=== PATIENT | male | born 1940 | race Caucasian/White ===

== ENCOUNTER → 2020-12-11 | Outpatient (CLI) | payer MEDICARE | LOC: COL.RAD 10:30 | DX: Z13.6 Encounter for screening for cardiovascular disorders (principal) ==

== ENCOUNTER → 2021-05-02 | Outpatient (CLI) | payer MEDICARE | LOC: COL.RAD 08:10 | DX: K59.01 Slow transit constipation (principal); N28.1 Cyst of kidney, acquired ==

== ENCOUNTER → 2021-08-01 | Outpatient (CLI) | payer MEDICARE | LOC: COL.RAD 07:38 | DX: R11.0 Nausea (principal) | CPT/HCPCS: A9541 ==

== ENCOUNTER 2021-08-30 07:18 | Day surgery (SDC) | payer MEDICARE ==
[~2021-08-30] VITALS: Ht 175.3 cm; Wt 81.3 kg
[2021-08-30] MEDS ORDERED: TOPROL XL 25MG25 MG PO (07:45)
[2021-08-30] MEDS ORDERED: GLUCOPHAGE1000 MG PO (07:45)
[2021-08-30] MEDS ORDERED: EUTHYROX50 MCG PO (07:45)
[2021-08-30] MEDS ORDERED: ZESTRIL 20MG TA20 MG PO (07:46)
[2021-08-30] MEDS ORDERED: GLUCOTROL 5M5 MG/TAB PO (07:46)
[2021-08-30] MEDS ORDERED: TYLENOL 8 HR PO (07:46)
[2021-08-30] MEDS ORDERED: IRON TABLETS325 MG PO (07:47)
[2021-08-30] MEDS ORDERED: ASPIRIN 81M81 MG/TA2 PO (07:47)
[2021-08-30] MEDS ORDERED: CENTRUM SILVER1 CTB PO (07:47)
[2021-08-30] MEDS ORDERED: FISH OIL 1000MG1 CAP PO (07:47)
[2021-08-30] MEDS ORDERED: VITAMIN D31000 IU PO (07:48)
[2021-08-30] MEDS ORDERED: LEXAPRO 10MG10 MG PO (07:49)
[2021-08-30] MEDS ORDERED: B COMPLEX & B121 TAB PO (07:49)
[2021-08-30] MEDS ORDERED: REGLAN 5MG T5 MG/TAB PO (07:49)
[2021-08-30] MEDS ORDERED: NITROSTAT0.4 MG/TAB SL (07:50)
[2021-08-30 08:01] VITALS: BP 173/87; PULSE 68; TEMP 97.5
[2021-08-30 09:15] VITALS: BP 155/81; PULSE 61; TEMP 98
[2021-08-30 09:30] VITALS: BP 170/82; PULSE 60; TEMP 98
[2021-08-30 09:45] VITALS: BP 166/85; PULSE 62; TEMP 98
[2021-08-30 13:13] VITALS: BP 155/81; PULSE 58
== END 2021-08-30 10:10 | disposition home or self-care (01) ==
LOC: SDCO 07:18
DX: K22.70 Barrett's esophagus without dysplasia (principal); K20.90 Esophagitis, unspecified without bleeding; K44.9 Diaphragmatic hernia without obstruction or gangrene; K59.00 Constipation, unspecified; Z87.891 Personal history of nicotine dependence
CPT/HCPCS: J2704; J7030

== ENCOUNTER 2021-11-14 10:01 | Emergency (ER) | payer MEDICARE, OTHER ==
[~2021-11-14] VITALS: Ht 172.7 cm; Wt 81.8 kg
[~2021-11-14 10:01] MED LIST: ASPIRIN 81M81 MG/TA2 PO; B COMPLEX & B121 TAB PO; CENTRUM SILVER1 CTB PO; EUTHYROX50 MCG PO; FISH OIL 1000MG1 CAP PO; GLUCOPHAGE1000 MG PO; GLUCOTROL 5M5 MG/TAB PO; IRON TABLETS325 MG PO; LEXAPRO 10MG10 MG PO; NITROSTAT0.4 MG/TAB SL; REGLAN 5MG T5 MG/TAB PO; TOPROL XL 25MG25 MG PO; TYLENOL 8 HR PO; VITAMIN D31000 IU PO; ZESTRIL 20MG TA20 MG PO
[2021-11-14 10:04] VITALS: TEMP 98.3
[2021-11-14 10:41] LABS: BASO % 0.4 % (0.0-2.0); EOS # 0.3 K/mm3 (0.0-0.7); EOS % 5.3 % (0.0-4.0); GRAN # 3.3 K/mm3 (1.4-6.5); GRAN % 64.4 % (42.2-75.2); HEMOGLOBIN 12.4 g/dl (13.5-18.0); LYMPH % 19.3 % (20.0-51.0); MEAN CELL VOLUME 93 fl (80.0-100.0); MEAN CORPUSCULAR HEMOGLOBIN 32 pg (27-31); MEAN CORPUSCULAR HGB CONC 34 g/dl (33.0-37.0); MEAN PLATELET VOLUME 9.9 fl (7.4-10.4); MONO # 0.5 K/mm3 (0.1-0.6); MONO % 10.4 % (1.7-9.3); PLATELET COUNT 182 K/mm3 (130-400); RED BLOOD COUNT 3.92 M/mm3 (4.20-5.60); REDCELL DISTRIBUTION WIDTH-CV 13.2 % (11.5-14.5)
[2021-11-14 10:43] LABS: HEMATOCRIT 36.3 % (42.0-52.0)
[2021-11-14 10:49] LABS: COLLECTION METHOD CATHETER
[2021-11-14 10:56] LABS: ALBUMIN 3.5 gm/dL (3.4-4.8); BILIRUBIN,TOTAL 0.8 mg/dL (0.2-1.2); CALCIUM 9.6 mg/dL (8.4-10.2); CREATININE, serum 1.05 mg/dL (0.72-1.25); TOTAL PROTEIN 6.4 gm/dL (6.2-8.1)
[2021-11-14 11:03] LABS: MUCOUS Present (NOT PRESENT); PH 5 (5-8); SQUAMOUS EPITHELIAL 0-2 /hpf (0-10); URINE APPEARANCE Hazy (CLEAR/HAZY); URINE BACTERIA None Seen /hpf (NONE SEEN); URINE BILIRUBIN Negative (NEGATIVE); URINE BLOOD Negative (NEGATIVE); URINE COLOR Yellow (YELLOW); URINE GLUCOSE 1+ (NEGATIVE); URINE KETONE Trace (NEGATIVE); URINE LEUKOCYTE ESTERASE Negative (NEGATIVE); URINE NITRATE Negative (NEGATIVE); URINE PROTEIN(semi-quant) Negative (NEGATIVE); URINE RBC 0-2 /hpf (0-2); URINE UROBILINOGEN Negative (NEGATIVE)
[2021-11-14 13:50] VITALS: BP 147/100; PULSE 85
--- NOTE | 2021-11-14 13:51 | NUR ---
ADELFO responded to consult. The patient presented to the ED with right leg pain after a fall yesterday. He has had altered level of consciousness since the fall. It is noted that he likely has a history of dementia. ADELFO met with the patient and his daughter, Lois (ph#[phone]). The patient lives in [place] with Lois. Lois states that she is with the patient at all times, except on Wednesdays, when she works. She states that she brings the patient to [facility] for adult day care on Wednesdays. She states that the patient is normally independent with ADLs and has a cane. Lois states that the patient has been receiving home health services from [facility] and he has a bathe aide through them. The patient's PCP is Dr. Eldon So. Lois states that the way the patient is now, she does not think she can take the patient home. ADELFO discussed looking at going to a facility, but informed Lois how this would be private pay. Lois states that they cannot afford to private pay at a facility. She states that she is working on a Medicaid application now for the patient and is hopeful he will be approved, so he can get in-home care paid by insurance. Lois states that she will take the patient home and resume home health services. She states that she will just need assistance getting the patient in and out of her vehicle. ADELFO informed Lois how our staff can help get the patient into her vehicle and this SW can have [facility] meet them at their home, to help get the patient inside. Lois verbalized understanding and is agreeable to this plan. ADELFO updated the patient's RN and the ED doctor. ADELFO contacted [facility] and they will meet the patient and his daughter at their home. ADELFO contacted and faxed a [id number] and updates to Denzel at [facility]. Dnezel reports that they already have the patient on for services and will continue services.
== END 2021-11-14 13:53 | disposition home or self-care (01) ==
LOC: COL.ER 10:01
PROVIDERS: Personal Emergency Response Attendant
DX: F03.90 Unspecified dementia, unspecified severity, without behavioral disturbance, psychotic disturbance, mood disturbance, and anxiety (principal); W18.30XA Fall on same level, unspecified, initial encounter

== ENCOUNTER 2021-12-11 10:48 | Observation (INO) | payer MEDICARE, OTHER ==
[~2021-12-11] VITALS: Ht 25.4 cm; Wt 67.7 kg
[2021-12-11 11:17] LABS: BASO % 0.2 % (0.0-2.0); EOS % 0.4 % (0.0-4.0); GRAN # 3.5 K/mm3 (1.4-6.5); GRAN % 75.3 % (42.2-75.2); HEMATOCRIT 39.6 % (42.0-52.0); HEMOGLOBIN 13.3 g/dl (13.5-18.0); LYMPH # 0.6 K/mm3 (1.2-3.4); LYMPH % 12.6 % (20.0-51.0); MEAN CELL VOLUME 94 fl (80.0-100.0); MEAN CORPUSCULAR HEMOGLOBIN 32 pg (27-31); MEAN CORPUSCULAR HGB CONC 34 g/dl (33.0-37.0); MEAN PLATELET VOLUME 10.6 fl (7.4-10.4); MONO # 0.5 K/mm3 (0.1-0.6); MONO % 11.1 % (1.7-9.3); PLATELET COUNT 227 K/mm3 (130-400); RED BLOOD COUNT 4.22 M/mm3 (4.20-5.60); REDCELL DISTRIBUTION WIDTH-CV 12.7 % (11.5-14.5)
[2021-12-11 11:18] LABS: PROTHROMBIN TIME 15.3 SECONDS (9.7-12.8)
[2021-12-11 11:19] LABS: INR 1.3 (0.8-3.0)
[2021-12-11 11:31] LABS: ALANINE AMINOTRANSFERASE 7 U/L (0-55); ALBUMIN 3.5 gm/dL (3.4-4.8); ALKALINE PHOSPHATASE 98 U/L (40-150); ANION GAP 13 mmol/L (7-16); AST,SGOT 11 U/L (5-34); BILIRUBIN,TOTAL 0.5 mg/dL (0.2-1.2); BLOOD UREA NITROGEN 19 mg/dL (8-26); CALCIUM 9.5 mg/dL (8.4-10.2); CARBON DIOXIDE 22 mmol/L (23-31); CHLORIDE 105 mmol/L (98-107); CREATININE, serum 1.11 mg/dL (0.72-1.25); GLUCOSE 174 mg/dL (70-99); POTASSIUM 4.2 mmol/L (3.5-4.5); SODIUM 140 mmol/L (136-145); TOTAL PROTEIN 7.4 gm/dL (6.2-8.1)
[2021-12-11 11:38] LABS: TROPONIN-I < 0.010 ng/mL (0.00-0.033)
[2021-12-11 12:03] LABS: COLLECTION METHOD CLEAN CATCH
[2021-12-11 12:09] LABS: MUCOUS Present (NOT PRESENT); PH 5 (5-8); SQUAMOUS EPITHELIAL None Seen /hpf (0-10); URINE APPEARANCE Hazy (CLEAR/HAZY); URINE BACTERIA None Seen /hpf (NONE SEEN); URINE BILIRUBIN Negative (NEGATIVE); URINE BLOOD Negative (NEGATIVE); URINE COLOR Yellow (YELLOW); URINE GLUCOSE 2+ (NEGATIVE); URINE KETONE 1+ (NEGATIVE); URINE LEUKOCYTE ESTERASE Negative (NEGATIVE); URINE NITRATE Negative (NEGATIVE); URINE PROTEIN(semi-quant) 1+ (NEGATIVE); URINE RBC 0-2 /hpf (0-2); URINE UROBILINOGEN Negative (NEGATIVE)
[2021-12-11 15:41] VITALS: BP 131/56; PULSE 141; TEMP 98.7
[2021-12-11 15:45] VITALS: BP 113/59
[2021-12-11 16:12] VITALS: BP 109/58
--- NOTE | 2021-12-11 17:46 | NUR ---
Covid + admission from ED. Pt is confused, drowsy, and intermittently following commands/answering questions. Social work, dietary, speech and cardiology consulted. 5 mg metoprolol IV push given per order for sustained HR in the 140's. Patient asymptomatic with stable BP.
[2021-12-11 20:44] VITALS: BP 110/78; PULSE 97; TEMP 98.4
--- NOTE | 2021-12-11 21:27 | NUR ---
PT RESTING QUIETLY IN BED WATCHING TV. PT CONFUSED BUT PLEASANT.
[2021-12-12 03:06] VITALS: BP 101/65; PULSE 55; TEMP 97.8
[2021-12-12 06:45] LABS: GRAN # 2.4 K/mm3 (1.4-6.5); GRAN % 71.7 % (42.2-75.2); HEMOGLOBIN 12.3 g/dl (13.5-18.0); LYMPH # 0.5 K/mm3 (1.2-3.4); LYMPH % 16.1 % (20.0-51.0); MEAN CELL VOLUME 92 fl (80.0-100.0); MEAN CORPUSCULAR HEMOGLOBIN 32 pg (27-31); MEAN CORPUSCULAR HGB CONC 34 g/dl (33.0-37.0); MEAN PLATELET VOLUME 11.2 fl (7.4-10.4); MONO # 0.4 K/mm3 (0.1-0.6); MONO % 11.9 % (1.7-9.3); PLATELET COUNT 229 K/mm3 (130-400); RED BLOOD COUNT 3.91 M/mm3 (4.20-5.60); REDCELL DISTRIBUTION WIDTH-CV 12.7 % (11.5-14.5)
[2021-12-12 07:13] LABS: ALBUMIN 3.1 gm/dL (3.4-4.8); CALCIUM 9.2 mg/dL (8.4-10.2); CREATININE, serum 0.96 mg/dL (0.72-1.25); MAGNESIUM 1.7 mg/dL (1.6-2.6); PHOSPHOROUS 3.5 mg/dL (2.3-4.7); POTASSIUM 4.3 mmol/L (3.5-4.5)
[2021-12-12 07:59] VITALS: BP 140/84; PULSE 91; TEMP 97.7
--- NOTE | 2021-12-12 11:22 | NUR ---
PATIENT RESTING IN BED, NO COMPLAINTS OF PAIN. FEET AND HEELS INTACT. WALLACE PROMININCES INTACT. RECTUM, SCROTUM AND INNER BUTTOCKS, RED AND EXCORIATED. PATIENT COMPLAINS OF BEING COLD, PATIENTS EXTREMITIES AND SKIN ARE VERY COLD TO THE TOUCH. PULSES ARE FAINT IN EXTREMITIES. AYALA IN PLACE, URINE TEA COLORED WITH HEAVY SEDIMENT. PATIENT VERBALLY STATES HE IS HUNGRY BUT JUST NOT READY TO EAT YET. AWAITING CONVERSATION WITH DAUGHTER/CPOA, PIN CHASER AND PROVIDER BEFORE ATTEMPTING TO ADMINISTER MEDICATIONS, CURRENTLY PATIENT ONLY ALERT TO NAME AND LOCATION.
--- NOTE | 2021-12-12 11:33 | NUR ---
The patient is COVID postive. He has Alzheimer's Disease. Juan Carlos, social science professor, with the patient's PCP contacted this ADELFO. Juan Carlos reports that they were looking at transitioning the patient to home hospice from [facility] last week. The patient's daughter, Lois, then got sick with COVID and she wanted to look at the patient going to the hospice house. The patient then presented to the ED and tested positive. Juan Carlos faxed SW the patient's DNR order. ADELFO notified the hospitalist and the patient's RN and placed the order is the patient's chart. ADELFO contacted Mauricio at [facility]. Mauricio reports that they are able to accept the patient at the hospice house, but cannot until 5 days out from his positive COVID test. His test was yesterday, 12/11. Mauricio reports that the soonest they would be able to take the patient would be Thursday, 11/17. ADELFO contacted the patient's daughter, Lois (ph#[phone]), to review the above. Lois states that she cannot take care for the patient at home on hospice, if the agency is only coming out a couple hours a day. She would like to pursue with the hospice house. She states that she has completed a Medicaid application for the patient and is concerned about finances. She is aware that room and board at the hospice house would be private pay. Lois states that as long as there is no other acute reason why the patient is not eating or drinking, then she is fine with transitioning the patient to comfort care while here. ADELFO notified the hospitalist and the RN of this. Lois emailed this ADELFO a copy of the patient's DPOA-HC. ADELFO placed the copy in the patient's chart. The patient's DPOA-HC is his daughter, Lois. ADELFO faxed updates to [facility]. *Discharge plan: Hospice House 12/17.
[2021-12-12 12:02] VITALS: BP 121/73; PULSE 63; TEMP 97.6
[2021-12-12 17:07] VITALS: BP 119/69; PULSE 114; TEMP 97.4
[2021-12-12 19:55] VITALS: BP 112/52; PULSE 97; TEMP 98.7
--- NOTE | 2021-12-12 20:19 | NUR ---
PATIENT RESTED COMFORTABLY FOR MOST OF THE DAY. MEDS NOT GIVEN IN THE MORNING DUE TO WAITING FOR SWALLOW EVAL. LATER IN AFTERNOON PATIENT STARTED TRYING TO GET OUT OF BED AND PULLING AT AYALA CATHETER. INCREASED CONFUSION AND AGITATION. PATIENT STILL NOT TAKING MUCH IF ANY ORAL INTAKE. NO SIGNIFICANT EVENTS. PATIENT ON ALL FALL PREACAUTIONS WITH BED ALARM ON, VIDOE MONITORING IN PLACE WITH VOLUME ON HIGH WELL.
[2021-12-13 00:10] VITALS: BP 122/57; PULSE 80; TEMP 98.3
[2021-12-13 02:22] VITALS: BP 91/60; PULSE 83
[2021-12-13 02:26] VITALS: BP 105/63; PULSE 80
[2021-12-13 03:43] VITALS: BP 107/52; PULSE 96; TEMP 97.9
--- NOTE | 2021-12-13 05:45 | NUR ---
PT CONFUSED AND AGITATED. HR BOUNCING BETWEEN 120'S TO 180'S AND BACK. EKG, TYLENOL AND MELATONIN ORDERED AND GIVEN. PT HAD SOME LOW B/P'S. WILL CONTINUE TO MONITOR. CALL LIGHT WITHIN REACH.
[2021-12-13 06:19] LABS: EOS % 0.2 % (0.0-4.0); GRAN # 3.5 K/mm3 (1.4-6.5); GRAN % 67.2 % (42.2-75.2); HEMOGLOBIN 11.4 g/dl (13.5-18.0); LYMPH # 1.2 K/mm3 (1.2-3.4); LYMPH % 22.4 % (20.0-51.0); MEAN CELL VOLUME 91 fl (80.0-100.0); MEAN CORPUSCULAR HEMOGLOBIN 31 pg (27-31); MEAN CORPUSCULAR HGB CONC 34 g/dl (33.0-37.0); MEAN PLATELET VOLUME 10.8 fl (7.4-10.4); MONO # 0.5 K/mm3 (0.1-0.6); MONO % 9.8 % (1.7-9.3); PLATELET COUNT 217 K/mm3 (130-400); RED BLOOD COUNT 3.67 M/mm3 (4.20-5.60); REDCELL DISTRIBUTION WIDTH-CV 12.9 % (11.5-14.5)
[2021-12-13 06:42] LABS: HEMATOCRIT 33.5 % (42.0-52.0)
[2021-12-13 06:44] LABS: ALBUMIN 2.7 gm/dL (3.4-4.8); CALCIUM 8.4 mg/dL (8.4-10.2); CREATININE, serum 0.89 mg/dL (0.72-1.25); MAGNESIUM 1.6 mg/dL (1.6-2.6); PHOSPHOROUS 2.5 mg/dL (2.3-4.7); POTASSIUM 3.6 mmol/L (3.5-4.5)
--- NOTE | 2021-12-13 09:59 | NUR ---
PATIENT TOOK MORNING REGLAN WITH PROMPTING. BS WAS 64, REPORTED TO AZIZA HENRIQUEZ. PATIENT ACTIVELY EATING BREAKFAST. ORDERED TO RECHEK AFTER EATING. RECHECK 168. NO FURTHER INTERVENTIONS. WILL ATTEMPT TO GIVE FURTHER ORAL MEDS THIS MORNING. WILL CLARIFY WITH PROVIDER AND SOCIAL WORK PLAN OF CARE, IE. HOSPICE/COMFORT CARE.
--- NOTE | 2021-12-13 10:38 | NUR ---
Mauricio, at [facility], reports that they are good to accept the patient on Thursday, 12/17, and request a 1300 poultry picking machine tender time. Mauricio states that she has been in contact with the patient's daughter, Lois, and Lois plans to meet the patient at the hospice house on Thursday. SW to update the clinical team.
[2021-12-13 12:05] VITALS: BP 135/71; PULSE 73
--- NOTE | 2021-12-13 13:12 | NUR ---
Call made to patient's daughter, Lois. Answered her questions about hospice and end-of-life. Provided my contact information as well
--- NOTE | 2021-12-13 15:39 | NUR ---
PATIENT HAS BEEN SLEEPING IN BED TODAY. HAS TAKEN ALL ORAL MEDS WITH HEAVY PROMPTING. IV FLUIDS RUNNING AT 75ML/HR. AYALA IN PLACE, YELLOW URINE WITH SEDIMENT. NO COMPLAINTS OF PAIN, NO VISIBLE EVIDENCE OF PAIN. PATIENT ON MODIFIED COMFORT CARE. PRN VITALS, NO ACCU CHECKS, OR HYPOGLYCEMIC PROTOCOLS. PAIN MEDS AND ATIVAN ORDERED PRN. FALL PERCAUTIONS IN PLACE WITH VIDEO MONITORING SET UP PATIENT IS COVID +.
--- NOTE | 2021-12-14 03:01 | NUR ---
ASSESSMENT COMPLETE FOR THIS SHIFT. PT RESTING IN BED TALKING TO HIMSELF. PT CONTINUES TO BE CONFUSED. PT DISPLAYS NO SIGNS OF PAIN OR DISCOMFORT. WILL CONTINUE TO MONITOR PT CLOSELY TO ENSURE NEEDS ARE MET. CALL LIGHT WITHIN REACH.
[2021-12-14 06:02] LABS: EOS % 0.3 % (0.0-4.0); GRAN # 2.7 K/mm3 (1.4-6.5); GRAN % 67.6 % (42.2-75.2); HEMOGLOBIN 11.7 g/dl (13.5-18.0); LYMPH # 0.8 K/mm3 (1.2-3.4); MEAN CELL VOLUME 92 fl (80.0-100.0); MEAN CORPUSCULAR HEMOGLOBIN 32 pg (27-31); MEAN CORPUSCULAR HGB CONC 34 g/dl (33.0-37.0); MEAN PLATELET VOLUME 10.5 fl (7.4-10.4); MONO # 0.4 K/mm3 (0.1-0.6); MONO % 10.8 % (1.7-9.3); PLATELET COUNT 201 K/mm3 (130-400); RED BLOOD COUNT 3.72 M/mm3 (4.20-5.60); REDCELL DISTRIBUTION WIDTH-CV 13.1 % (11.5-14.5)
[2021-12-14 06:14] LABS: HEMATOCRIT 34.3 % (42.0-52.0)
[2021-12-14 06:18] LABS: ALBUMIN 2.7 gm/dL (3.4-4.8); CALCIUM 8.5 mg/dL (8.4-10.2); CREATININE, serum 0.81 mg/dL (0.72-1.25); MAGNESIUM 1.6 mg/dL (1.6-2.6); PHOSPHOROUS 2.8 mg/dL (2.3-4.7); POTASSIUM 3.4 mmol/L (3.5-4.5)
--- NOTE | 2021-12-14 06:19 | NUR ---
PT TAKEN OFF TELLE WITH HOSPITALIST [place].
--- NOTE | 2021-12-14 09:05 | NUR ---
PATIENT DOING WELL THIS MORNING WITH NO COMPLAINTS. PATIENT IS AWARE OF SELF, DOES NOT APPEAR TO KNOW WHERE HE IS OR WHY. PLEASANT. ABLE TO RESPOND TO COMMANDS AND INSTRUCTTIONS. AYALA CATHETER IN PLACE. UNKNOWN IF PATIENT IS ABLE TO AMBULATE AT THIS TIME. DOES HAVE A HISTORY OF OWNERS. NO COVID SYMPTOMS OBSERVED ON ASSESSMENT. AFEBRILE, NO COUGH, DENIES ANY OTHER SYMPTOMS. IV ACCESS HAS BEEN UNSUCCESSFUL, CALL PLACED TO HOSPITALIST TO PROVIDER FURTHER GUIDANCE IV FLUID ARE ORDERED. PATIENT APPETITE IS MODERATE, FLUID INTAKE SAME, MUST BE REMINDED AND ENCOURAGED TO EAT AND DRINK. TAKES MEDS WHOLE WITHOUT ISSUE. HOSPICE HOUSE HAS ACCEPTED AND PATIENT IS SCHEDULED TO DEPART THURSDAY AT 1300.
--- NOTE | 2021-12-15 05:00 | NUR ---
ASSESSMENT COMPLETE FOR THIS SHIFT. PT SITTING ON THE SIDE OF THE BED STARING OFF IN SPACE. PT CONTINUES WITH HIS SOMETIMES INCOHERENT CONVERSATIONS WITH STAFF AND HIMSELF. PT DISPLAYED NO SIGNS OF DISCOMFORT OR PAIN. PT DID REFUSE HIS LOVENOX SHOT TONIGHT. I EXPLAINED TO PT AGAIN WHAT THE SHOT WAS FOR. PT ASKED, "DO I HAVE TO TAKE IT?" I SAID, "NO, I CAN'T MAKE YOU." PT STATED, "I'LL JUST SKIP IT." WILL CONTINUE TO MONITOR PT CLOSELY TO ENSURE HIS NEEDS ARE MET. CALL LIGHT WITHIN.
[2021-12-15 06:18] LABS: BASO % 0.3 % (0.0-2.0); EOS # 0.1 K/mm3 (0.0-0.7); EOS % 2.4 % (0.0-4.0); GRAN # 1.6 K/mm3 (1.4-6.5); GRAN % 55.1 % (42.2-75.2); HEMOGLOBIN 11.5 g/dl (13.5-18.0); LYMPH # 0.9 K/mm3 (1.2-3.4); LYMPH % 29.8 % (20.0-51.0); MEAN CELL VOLUME 93 fl (80.0-100.0); MEAN CORPUSCULAR HEMOGLOBIN 32 pg (27-31); MEAN CORPUSCULAR HGB CONC 34 g/dl (33.0-37.0); MEAN PLATELET VOLUME 10.5 fl (7.4-10.4); MONO # 0.4 K/mm3 (0.1-0.6); MONO % 12.1 % (1.7-9.3); PLATELET COUNT 184 K/mm3 (130-400); RED BLOOD COUNT 3.63 M/mm3 (4.20-5.60)
[2021-12-15 06:20] LABS: HEMATOCRIT 33.9 % (42.0-52.0)
[2021-12-15 06:21] LABS: ALBUMIN 2.5 gm/dL (3.4-4.8); CALCIUM 8.4 mg/dL (8.4-10.2); CREATININE, serum 0.74 mg/dL (0.72-1.25); MAGNESIUM 1.6 mg/dL (1.6-2.6); PHOSPHOROUS 2.5 mg/dL (2.3-4.7)
--- NOTE | 2021-12-16 05:10 | NUR ---
ASSESSMENT COMPLETE FOR THIS SHIFT. PT RESTING IN BED WATCHING TV. PT DISPLAYED NO SIGNS OF DISTRESS OR DISCOMFORT. PT CONTINUES AT TIMES TO HAVE CONVERSATIONS WITH HIMSELF, OR START TALKING ABOUT RANDOM OFF TOPIC STUFF, WHEN STAFF COMES IN FOR CARE. WILL CONTINUE TO MONITOR. CALL LIGHT WITHIN REACH.
[2021-12-16 06:25] LABS: BASO % 0.3 % (0.0-2.0); EOS # 0.3 K/mm3 (0.0-0.7); EOS % 7.2 % (0.0-4.0); GRAN # 1.7 K/mm3 (1.4-6.5); GRAN % 48.6 % (42.2-75.2); HEMOGLOBIN 11.4 g/dl (13.5-18.0); LYMPH # 1.1 K/mm3 (1.2-3.4); LYMPH % 32.4 % (20.0-51.0); MEAN CELL VOLUME 93 fl (80.0-100.0); MEAN CORPUSCULAR HEMOGLOBIN 31 pg (27-31); MEAN CORPUSCULAR HGB CONC 33 g/dl (33.0-37.0); MEAN PLATELET VOLUME 10.2 fl (7.4-10.4); MONO # 0.4 K/mm3 (0.1-0.6); MONO % 10.9 % (1.7-9.3); PLATELET COUNT 194 K/mm3 (130-400); RED BLOOD COUNT 3.65 M/mm3 (4.20-5.60)
[2021-12-16 06:44] LABS: ALBUMIN 2.6 gm/dL (3.4-4.8); CALCIUM 8.6 mg/dL (8.4-10.2); CREATININE, serum 0.8 mg/dL (0.72-1.25); HEMATOCRIT 34.1 % (42.0-52.0); MAGNESIUM 1.7 mg/dL (1.6-2.6); PHOSPHOROUS 2.3 mg/dL (2.3-4.7)
[2021-12-16 06:51] LABS: POTASSIUM 2.9 mmol/L (3.5-4.5)
--- NOTE | 2021-12-16 07:19 | NUR ---
CRITICAL LAB VALUE RECIEVED, POTASSIUM 2.9. WILL COMMUNICATE TO HOSPITALIST FOR REPLACEMENT OPTIONS.
--- NOTE | 2021-12-16 09:26 | NUR ---
UPON MORNING ASSESSMENT PATIENT WAS FOUND TO BE HEAVILY DRENCHED IN URINE WITH ODOR IN ROOM. THIS NURSE CHANAGED BED LINENS AND WASHED PATIENT. HAIR WAS WASHED AND COMBED. CATHETER CARE GIVEN. BARRIER CREAM APPLIED TO SCROTUM AREA WAS SLIGHTLY REDDENED. PATIENT WAS FED BY THIS NURSE AND FLUIDS ENCOURAGED. PATIENT DOING MUCH BETTER THAN PREVIOUS DAYS, MORE ALERT AND CONVERSATING. ABLE TO INDEPENDENTLY ROLL FROM SIDE TO SIDE IN BED WITH INSTRUCTED TO FOR LINEN CHANGES. CATHETER FOUND TO BE LEAKING, FLUID IN BALLOON CHECKED AND MORE FLUID ADDED TO PREVENT LEAKAGE. WILL CONTINUE TO MONITOR THIS. TAKES MEDS WHOLE WITH NO PROBLEM. PLEASANT. A&0 TO SELF. PLAN TO GO TO HOSPICE HOUSE TOMORROW.
--- NOTE | 2021-12-17 05:30 | NUR ---
ASSESSMENT COMPLETE FOR THIS SHIFT. PT FOUND IN THE RESTROOM WITH HIS AYALA STILL ATTACHED TO THE BED AND HIMSELF. I HELPED PT SLOWLY BACK TO BED AND HAD CHANGE CHECK TO ENSURE HIS AYALA WAS STILL IN PLACE. BED ALARM PLACED AND PT GIVEN ATIVAN TO HELP WITH HIS AGITATION. PT RESTED IN BED THE REMAINED OF THE SHIFT. WILL CONTINUE TO MONITOR. CALL LIGHT WITHIN REACH.
[2021-12-17 06:24] LABS: BASO % 0.3 % (0.0-2.0); EOS # 0.3 K/mm3 (0.0-0.7); EOS % 6.5 % (0.0-4.0); GRAN # 2.2 K/mm3 (1.4-6.5); GRAN % 55.8 % (42.2-75.2); HEMOGLOBIN 12.1 g/dl (13.5-18.0); LYMPH # 1.1 K/mm3 (1.2-3.4); LYMPH % 27.5 % (20.0-51.0); MEAN CELL VOLUME 92 fl (80.0-100.0); MEAN CORPUSCULAR HEMOGLOBIN 31 pg (27-31); MEAN CORPUSCULAR HGB CONC 34 g/dl (33.0-37.0); MEAN PLATELET VOLUME 10.6 fl (7.4-10.4); MONO # 0.4 K/mm3 (0.1-0.6); MONO % 9.6 % (1.7-9.3); PLATELET COUNT 225 K/mm3 (130-400); RED BLOOD COUNT 3.88 M/mm3 (4.20-5.60); REDCELL DISTRIBUTION WIDTH-CV 12.9 % (11.5-14.5)
[2021-12-17 06:33] LABS: HEMATOCRIT 35.5 % (42.0-52.0)
[2021-12-17 06:34] LABS: CREATININE, serum 0.77 mg/dL (0.72-1.25)
[2021-12-17 06:38] LABS: POTASSIUM 2.8 mmol/L (3.5-4.5)
[2021-12-17] MEDS ORDERED: TRANSDERM-0.5 MG/21 TD (07:57)
[2021-12-17] MEDS ORDERED: SYSTANE 0.4%-0.1 SOL OU (07:57)
[2021-12-17] MEDS ORDERED: DULCOLAX S10 MG/SUPP RC (07:57)
[2021-12-17] MEDS ORDERED: ROXANOL 20MG20 MG/ML SL (07:58)
[2021-12-17] MEDS ORDERED: ATIVAN 1MG T1 MG/TAB PO (07:58)
--- NOTE | 2021-12-17 09:09 | NUR ---
The patient is to discharge today, 12/17, to the [facility]. Transportation was scheduled at 1100, via [facility]. ADELFO informed the patient's RN and his daughter, Lois, of the transport time. Lois also gave ADELFO verbal consent to sign the EMS Consent Form on her behalf. No additional needs at this time.
--- NOTE | 2021-12-17 11:06 | NUR ---
PATIENT DISCHARGED AT THIS TIME WITH EMS TO HOSPICE HOUSE. STABLE CONDITION UPON DEPARTURE.
== END 2021-12-17 11:07 | disposition hospice, home (50) ==
LOC: COL.ER 10:48 → MEDICAL 12:14
PROVIDERS: Physician Assistant; Student in an Organized Health Care Education/Training Program; ADMIT Internal Medicine
DX: U07.1 COVID-19 (principal); I48.20 Chronic atrial fibrillation, unspecified; I45.10 Unspecified right bundle-branch block; G30.9 Alzheimer's disease, unspecified; F02.80 Dementia in other diseases classified elsewhere, unspecified severity, without behavioral disturbance, psychotic disturbance, mood disturbance, and anxiety; E11.9 Type 2 diabetes mellitus without complications; R63.30 Feeding difficulties, unspecified; I47.1 Supraventricular tachycardia; I25.10 Atherosclerotic heart disease of native coronary artery without angina pectoris; I77.819 Aortic ectasia, unspecified site; Z95.5 Presence of coronary angioplasty implant and graft; Z95.0 Presence of cardiac pacemaker; Z79.84 Long term (current) use of oral hypoglycemic drugs; Z79.899 Other long term (current) drug therapy; Z79.82 Long term (current) use of aspirin; Z87.891 Personal history of nicotine dependence
CPT/HCPCS: 99231-AI; G0378; J0696; J1100; J1650; J7030